=== PATIENT | female | born 1965 | race Caucasian/White ===

== ENCOUNTER 2019-08-06 07:17 | Inpatient (IN) | payer OTHER ==
[~2019-08-06] VITALS: Ht 170.1 cm; Wt 98.0 kg
[~2019-08-06 07:17] MED LIST: ALEVE220 MG PO; NAPROSYN500 MG PO
[2019-08-06 07:54] VITALS: BP 146/80
[2019-08-06 07:58] LABS: BASO % 0.2 % (0.0-1.0); HEMATOCRIT 44.8 % (37.0-47.0); HEMOGLOBIN 14.8 g/dl (12.0-16.0); LYMPH # 1.1 10*3/uL (1.3-4.4); LYMPH % 25.2 % (27.0-41.0); MEAN CELL VOLUME 83.9 fl (81.0-99.0); MEAN CORPUSCULAR HGB 27.7 pg (27.0-31.0); MONO # 0.5 10*3/uL (0.1-1.0); MONO % 12.4 % (3.0-9.0); NEUT # 2.7 10*3/uL (2.3-7.9); PLATELET COUNT AUTOMATED 196 10*3/uL (130-400); RED BLOOD COUNT 5.34 10*6/uL (4.10-5.10); RED CELL DISTRI WIDTH 13.9 % (0-14.5); WHITE BLOOD COUNT 4.3 10*3/uL (4.8-10.8)
[2019-08-06 08:09] LABS: ACT PARTIAL THROMBO TIME 28.4 SECONDS (20.0-32.1); INTERNATIONAL NORM RATIO 0.9 (2.0-3.5)
[2019-08-06 08:14] LABS: ALBUMIN 3.1 gm/dl (3.1-4.5); ALKALINE PHOSPHATASE 81 U/L (45-117); BUN 19 mg/dl (7-24); CHLORIDE 103 mmol/L (98-107); CREATININE 0.73 mg/dL (0.55-1.02); SGOT/AST 93 IU/L (3-35); SGPT/ALT 82 U/L (12-78); SODIUM 136 mmol/L (136-145); TOTAL PROTEIN 7.5 gm/dL (6.4-8.2)
[2019-08-06 08:15] LABS: TROPONIN I < 0.015 ng/ml (<0.045)
[2019-08-06 09:44] VITALS: BP 141/88
[2019-08-06 12:00] VITALS: BP 135/71; BP 152/85
[2019-08-06 16:00] VITALS: BP 138/80
[2019-08-06 20:00] VITALS: BP 157/90
[2019-08-07] VITALS: BP 134/83
[2019-08-07 06:26] LABS: HEMATOCRIT 37.4 % (37.0-47.0); HEMOGLOBIN 12.4 g/dl (12.0-16.0); MEAN CORPUSCULAR HGB 27.9 pg (27.0-31.0); MEAN CORPUSCULAR HGB CONC 33.2 g/dl (33.0-37.0); MEAN PLATELET VOLUME 9.8 fl (9.6-12.3); PLATELET COUNT AUTOMATED 178 10*3/uL (130-400); RED BLOOD COUNT 4.45 10*6/uL (4.10-5.10); RED CELL DISTRI WIDTH 13.7 % (0-14.5); WHITE BLOOD COUNT 4.3 10*3/uL (4.8-10.8)
[2019-08-07 07:02] LABS: ALBUMIN 2.6 gm/dl (3.1-4.5); ALKALINE PHOSPHATASE 58 U/L (45-117); CHLORIDE 109 mmol/L (98-107); CHOLESTEROL 134 mg/dL (<200); CREATININE 0.57 mg/dL (0.55-1.02); HDL CHOLESTEROL 40 mg/dl (40-60); LDL CHOLESTEROL 59 mg/dL (9-159); PHOSPHOROUS 1.9 mg/dL (2.5-4.9); POTASSIUM 3.7 mmol/L (3.5-5.1); SGOT/AST 44 IU/L (3-35); SGPT/ALT 49 U/L (12-78); SODIUM 142 mmol/L (136-145); TOTAL PROTEIN 6.1 gm/dL (6.4-8.2); TRIGLYCERIDES 173 mg/dl (<150); VLDL CHOLESTEROL 35 mg/dL (6-40)
[2019-08-07 07:03] LABS: ATYPICAL LYMPHS 2 % (0-0); BURR CELLS FEW; PLATELET SUFFICIENCY NORMAL (NORMAL); SCHISTOCYTES FEW; TOTAL CELLS COUNTED 100 #CELLS
[2019-08-07 07:04] LABS: ROULEAUX SLIGHT
[2019-08-07 07:07] LABS: THYROID STIM HORMONE (HS) 0.728 uIU/ml (0.358-4.75)
[2019-08-07 07:09] LABS: BUN 8 mg/dl (7-24)
[2019-08-07 07:44] LABS: VITAMIN D, 25-HYDROXY 40.5 ng/mL (30-100)
[2019-08-07 08:00] VITALS: BP 142/76
[2019-08-07 12:00] VITALS: BP 135/82
[2019-08-07 16:00] VITALS: BP 167/87
[2019-08-07 20:00] VITALS: BP 147/84
[2019-08-08] VITALS: BP 147/89
[2019-08-08 07:01] LABS: HEMATOCRIT 38.8 % (37.0-47.0); HEMOGLOBIN 12.7 g/dl (12.0-16.0); MEAN CORPUSCULAR HGB 26.8 pg (27.0-31.0); MEAN CORPUSCULAR HGB CONC 32.7 g/dl (33.0-37.0); MEAN PLATELET VOLUME 10.1 fl (9.6-12.3); PLATELET COUNT AUTOMATED 228 10*3/uL (130-400); RED BLOOD COUNT 4.73 10*6/uL (4.10-5.10); RED CELL DISTRI WIDTH 13.4 % (0-14.5); WHITE BLOOD COUNT 5.1 10*3/uL (4.8-10.8)
[2019-08-08 07:03] LABS: ALBUMIN 2.9 gm/dl (3.1-4.5); ALKALINE PHOSPHATASE 58 U/L (45-117); BUN 7 mg/dl (7-24); CHLORIDE 106 mmol/L (98-107); CREATININE 0.52 mg/dL (0.55-1.02); POTASSIUM 3.5 mmol/L (3.5-5.1); SGOT/AST 41 IU/L (3-35); SGPT/ALT 48 U/L (12-78); SODIUM 140 mmol/L (136-145); TOTAL PROTEIN 6.7 gm/dL (6.4-8.2)
[2019-08-08 07:25] LABS: ATYPICAL LYMPHS 4 % (0-0); PLATELET SUFFICIENCY NORMAL (NORMAL); TOTAL CELLS COUNTED 100 #CELLS
[2019-08-08 08:00] VITALS: BP 158/86
[2019-08-08] MEDS ORDERED: LEVAQUIN750 M1 PO (11:22)
== END 2019-08-08 12:01 | disposition home or self-care (01) | DRG 871 ==
LOC: ED 07:17 → 4E 08:47 → EDHOLD 08:47 → 4E 09:30
PROVIDERS: Emergency Medicine; Student in an Organized Health Care Education/Training Program; ADMIT Internal Medicine
DX: A41.9 Sepsis, unspecified organism (principal); J18.9 Pneumonia, unspecified organism; J96.01 Acute respiratory failure with hypoxia; R73.9 Hyperglycemia, unspecified; R63.0 Anorexia; M26.609 Unspecified temporomandibular joint disorder, unspecified side; F12.90 Cannabis use, unspecified, uncomplicated; R65.20 Severe sepsis without septic shock; R74.0 Nonspecific elevation of levels of transaminase and lactic acid dehydrogenase [LDH]; Z80.3 Family history of malignant neoplasm of breast; Z80.49 Family history of malignant neoplasm of other genital organs; Z79.899 Other long term (current) drug therapy